=== PATIENT | female | born 1955 | race Caucasian/White ===

== ENCOUNTER 2023-12-14 06:20 | Day surgery (SDC) | payer MEDICARE ==
[2023-12-13 10:29] VITALS: BMI 25.2
[~2023-12-14 06:20] MED LIST: EPINEPHrine 0.3 MG in Ophthalmic Irrigation Solution 500 ML IRR SCH
[2023-12-14] MEDS ORDERED: PHENYLephrine 2.5% Ophth Soln 15 ml Bottle ONE (07:07)
[2023-12-14] MEDS ORDERED: Cyclopentolate 1% Opth Drop 2 ML BOT ONE (07:07)
[2023-12-14] MEDS ORDERED: PROPOFOL 20 ML ONE ×2 (08:30→08:46)
[2023-12-14] MEDS ORDERED: Lidocaine 1% PF 5 ML VIAL ONE ×2 (08:31→08:47)
[2023-12-14] MEDS ORDERED: fentaNYL 50 mcg/mL 1 mL Vial ONE ×2 (08:31→08:47)
[2023-12-14] MEDS ORDERED: Triamcinolone 40 MG/ML VIAL ONE (08:47)
[2023-12-14] MEDS ORDERED: Indocyanine Green 25 MG/10 ML VIAL ONE (08:47)
[2023-12-14] MEDS ORDERED: Bupivacaine 0.75% 10 ML VIAL ONE (08:47)
[2023-12-14] MEDS ORDERED: Lidocaine 4% PF 5 ML AMP ONE (08:47)
[2023-12-14] MEDS ORDERED: Maxitrol 0.1% Opth Oint 3.5 GM TUBE ONE (08:47)
[2023-12-14] MEDS ORDERED: CEFAZOLIN 1 GM VIAL ONE (08:47)
[2023-12-14] MEDS ORDERED: Acetaminophen 500 MG TAB ONE (09:37)
== END 2023-12-14 10:00 | disposition home or self-care (01) ==
LOC: SDC 06:20
PROVIDERS: ATTEND Ophthalmology Retina Specialist
PROC: 08T53ZZ Resection of Left Vitreous, Percutaneous Approach (ICD-10-PCS; principal; 2023-12-14)
DX: H35.342 Macular cyst, hole, or pseudohole, left eye (principal)
CPT/HCPCS: 67025; 67042; J0171; J2704; J3010; J0690; J3301; J3490